=== PATIENT | female | born 1960 | race Caucasian/White ===

== ENCOUNTER 2018-07-11 12:40 | Outpatient (CLI) | payer OTHER ==
--- NOTE | 2018-07-11 18:00 | CT ---
CT ABDOMEN WITH CONTRAST: CT PELVIS WITH CONTRAST: HISTORY: Abdominal mass in the left upper quadrant. The patient vomited twice last week. Constipation for th e past year. Left-sided abdominal pain. COMPARISON: None. FINDINGS: ABDOMEN: The lung bases are clear. The heart size is normal. No pericardial effusion. The descend ing thoracic aorta and abdominal aorta have a normal caliber. No periaortic fat stranding. Symmetri c attenuation of the psoas muscles. The portal vein is patent. Unremarkable gallbladder. The liver, spleen, pancreas, and adrenal glands have appropriate enhancement. No gastrohepatic, retrocrural, or periportal lymphadenopathy. Symmetric enhancement of the kidneys. Right extrarenal pelvis is noted. Hypodensities in the lower pole of the left kidney, compatible with mild dilatation. There is also mild dilatation of the right renal calyces. Bilaterally, no obstructing calculi in the intrarenal or extrarenal collecting syste ms. Bilateral ureters are unremarkable. No mesenteric mass, lymphadenopathy, free air, or free fluid. The gastric mucosa, the duodenum, and multiple normal caliber small bowel loops are noted. The ileoc ecal junction is normal. Normal caliber appendix. There is contrast and fecal material in a nondist ended, nondilated colon. Occasional diverticulum. No evidence of diverticulitis. Mucosal prominenc e and bowel wall prominence of the distal descending and sigmoid colon, likely due to inadequate dist ention. PELVIS: Unremarkable urinary bladder. The uterus and right adnexa have a normal appearance. In the left adnexa, there is a peripherally enhancing, centrally hypodense lesion, measuring 1.9 x 2.4 cm, compatible with a left ovarian cyst. A second smaller cyst, measuring 1.3 x 1, cm may be present. N o pelvic mass, lymphadenopathy, free air, or free fluid. The left ovarian vein is prominent, and the re is increased vascularity in the left adnexa. No lytic or blastic lesions in the osseous structures. IMPRESSION: 1. Mild fullness of both internal renal collecting systems, suggesting a component of mild bilateral hydronephrosis. There are no obstructing renal calculi. A urology consultation may be beneficial. 2. Multiple hypodensities in the left adnexa, likely representing ovarian follicles. There is asymm etric prominence of the left adnexal vascularity due to a prominent left ovarian vein. Correlate cli nically. 3. No evidence of small bowel or colon obstruction. POS: [facility]
== END 2018-07-11 12:41 | disposition home or self-care (01) ==
LOC: SCSCT 12:40
PROVIDERS: ATTEND Family Medicine
DX: R19.02 Left upper quadrant abdominal swelling, mass and lump (principal); R93.89 Abnormal findings on diagnostic imaging of other specified body structures
CPT/HCPCS: 74177

== ENCOUNTER 2018-09-20 10:11 | Outpatient (CLI) | payer OTHER ==
--- NOTE | 2018-09-21 11:13 | MMO ---
Bilateral MAMMO Bilat Screen [facility]. CLINICAL HISTORY: Patient is 58 years old and is seen for screening. The patient has no family history of breast cancer. The patient has no personal history of cancer. VIEWS: The views performed were: bilateral craniocaudal with tomosynthesis and bilateral mediolateral oblique with tomosynthesis. FILMS COMPARED: The present examination has been compared to prior imaging studies performed at [facility] on 09/10/2015, 10/08/2015 and 08/13/2016, and at [facility] on 01/19/2013. MAMMOGRAM FINDINGS: There are scattered fibroglandular densities. There are no suspicious masses, suspicious calcifications, or new areas of architectural distortion. IMPRESSION: THERE IS NO MAMMOGRAPHIC EVIDENCE OF MALIGNANCY. A ROUTINE FOLLOW-UP MAMMOGRAM IN 1 YEAR IS RECOMMENDED. THE RESULTS OF THIS EXAM WERE SENT TO THE PATIENT. ACR BI-RADS Category 1 - Negative MAMMOGRAPHY NOTE: 1. A negative mammogram report should not delay a biopsy if a dominant of clinically suspicious mass is present. 2. Approximately 10% to 15% of breast cancers are not detected by mammography. 3. Adenosis and dense breasts may obscure an underlying neoplasm.
== END 2018-09-20 10:12 | disposition home or self-care (01) ==
LOC: BICMAMMO 10:11
PROVIDERS: ATTEND Family Medicine
DX: Z12.31 Encounter for screening mammogram for malignant neoplasm of breast (principal)
CPT/HCPCS: 77063; 77067

== ENCOUNTER 2018-09-22 08:10 | Outpatient (CLI) | payer OTHER ==
--- NOTE | 2018-09-22 10:27 | ULT ---
ULTRASOUND GALLBLADDER RIGHT UPPER QUADRANT: Date: 09/22/18 HISTORY: Nausea and vomiting. COMPARISON: CT abdomen dated 07/11/18. FINDINGS: Visualized portion of the pancreas is unremarkable. Hepatic echotexture is normal. Small volume sludg e within the gallbladder. Portal vein is patent with antegrade flow. No pericholecystic fluid. The gallbladder wall thickness is normal. The right kidney is normal. No mass, hydronephrosis, or abn ormal calcifications. Common bile duct measures 3.0 mm. IMPRESSION: Normal exam. POS: [facility]
== END 2018-09-22 08:11 | disposition home or self-care (01) ==
LOC: ULT 08:10
PROVIDERS: ATTEND Internal Medicine Gastroenterology
DX: K92.0 Hematemesis (principal); R11.2 Nausea with vomiting, unspecified; R10.9 Unspecified abdominal pain
CPT/HCPCS: 76705

== ENCOUNTER 2019-06-22 09:53 | Outpatient (CLI) | payer OTHER ==
--- NOTE | 2019-06-22 10:34 | ULT ---
ULTRASOUND RETROPERITONEUM COMPLETE: (RENAL) DATE: 06/22/2019 HISTORY: 59-year-old female with "other hydronephrosis" FINDINGS: The right kidney measures 10.5 x 4.5 x 4.5 cm. The left kidney measures 10.5 x 5 x 5 cm. Both kidneys have normal parenchymal echogenicity. There is no hydronephrosis. No moderate sized or large renal cystic or solid renal lesion is identified. Cursory images of the urinary bladder demonstrate no gross abnormality. Prevoid bladder volume 350 mL. Post void residual: 15 mL. IMPRESSION: Normal
== END 2019-06-22 09:54 | disposition home or self-care (01) ==
LOC: BICULT 09:53
PROVIDERS: ATTEND Urology
DX: N13.39 Other hydronephrosis (principal)
CPT/HCPCS: 76770

== ENCOUNTER 2020-09-20 22:02 | Emergency (ER) | payer OTHER | END 2020-09-20 22:35 | disposition home or self-care (01) | LOC: ERS 22:02 | DX: L81.9 Disorder of pigmentation, unspecified (principal); Z87.891 Personal history of nicotine dependence | CPT/HCPCS: 99283 ==

== ENCOUNTER 2020-10-10 14:02 | Observation (INO) | payer OTHER ==
[~2020-10-10 14:02] MED LIST: Iopamidol 370 76% 100 ML VIAL ONE
[2020-10-10 14:38] LABS: #Basophils 0.1 thou/uL (0.0-0.2); #Eosinphils 0.1 thou/uL (0.0-0.7); #Lymphocytes 1.5 thou/uL (1.20-3.40); #Monocytes 0.7 thou/uL (0.11-0.59); #Neutrophils 4.7 thou/uL (1.40-6.50); %Basophils 0.9 % (0.0-1.0); %Eosinophils 1.3 % (0.0-10.0); %Monocytes 10.1 % (0.0-10.0); %Neutrophils 66.6 % (42.0-75.0); Hemoglobin 13.6 g/dL (12.0-16.0); Mean Corpuscular HGB CONC 33.5 g/dL (32.0-36.0); Mean Corpuscular Hemoglobin 33.8 pg (27.0-31.0); Platelet Count 375 thou/uL (130-400); RBC Distribution Width 11.6 % (11.5-14.5); Red Blood Cell (RBC) Count 4.02 mill/uL (4.20-5.40); White Blood Cell (WBC) Count 7.1 thou/uL (4.8-10.8)
[2020-10-10 15:01] LABS: ALT (SGPT) 48 U/L (8-55); AST (SGOT) 23 U/L (5-34); Albumin 4.2 g/dL (3.5-5.0); Alkaline Phosphatase 116 U/L (40-110); Anion Gap 11 mmol/L (10-20); BUN (Urea Nitrogen) 11 mg/dL (9.8-20.1); Bilirubin, Total 0.2 mg/dL (0.2-1.2); Calc. Creatinine Clearance 0 mL/min (70-130); Calcium 9.3 mg/dL (7.8-10.44); Carbon Dioxide 29 mmol/L (22-29); Chloride 107 mmol/L (98-107); Glucose 125 mg/dL (70-105); Protein, Total 7.2 g/dL (6.0-8.3); Sodium 143 mmol/L (136-145)
[2020-10-10] MEDS ORDERED: Acetaminophen 650 MG Suppository PR PRN (17:15)
[2020-10-10 17:18] LABS: Bacteria/HPF None Seen HPF (None Seen); Bilirubin Negative (Negative); Blood, Urine Negative (Negative); Clarity Clear (Clear); Glucose, Urine (Dipstick) Normal (Negative); Ketone, Urine Negative (Negative); Leukocyte 25 Leu/uL (Negative); Nitrite Negative (Negative); Protein, Urine (Dipstick) Negative (Neg-Trace); RBC/HPF 0-3 HPF (0-3); Specific Gravity, Urine 1.005 (1.002-1.036); Squamous Epithelial 0-3 HPF (0-3); Urobilinogen Normal mg/dL (Less than 2); pH, Urine 7.5 (5.0-9.0)
[2020-10-10] MEDS ORDERED: Aspirin 325 MG TAB PO SCH (17:30)
[2020-10-10 19:27] VITALS: BMI 29.0
[2020-10-10] MEDS ORDERED: Ondansetron ODT 4 MG TAB SL PRN (20:00)
[2020-10-10] MEDS ORDERED: Ondansetron PF 4 MG/2 ML Vial IVP PRN (20:00)
[2020-10-10] MEDS: Sodium Chloride 0.9% 1,000 ML IV SCH (21:28)
[2020-10-10 21:55] LABS: CKMB 0.8 ng/mL (0-6.6)
[2020-10-11 00:37] VITALS: TEMP 97.5
[2020-10-11 05:09] LABS: #Eosinphils 0.1 thou/uL (0.0-0.7); #Lymphocytes 1.5 thou/uL (1.20-3.40); #Monocytes 0.6 thou/uL (0.11-0.59); #Neutrophils 2.8 thou/uL (1.40-6.50); %Basophils 0.5 % (0.0-1.0); %Eosinophils 2.2 % (0.0-10.0); %Lymphocytes 30.4 % (21.0-51.0); %Neutrophils 55.9 % (42.0-75.0); Hemoglobin 11.8 g/dL (12.0-16.0); Mean Corpuscular HGB CONC 33.7 g/dL (32.0-36.0); Mean Platelet Volume 7.1 fL (7.4-10.4); Platelet Count 303 thou/uL (130-400); RBC Distribution Width 11.7 % (11.5-14.5); Red Blood Cell (RBC) Count 3.47 mill/uL (4.20-5.40)
[2020-10-11 05:42] LABS: Anion Gap 11 mmol/L (10-20); BUN (Urea Nitrogen) 11 mg/dL (9.8-20.1); Calc. Creatinine Clearance 115 mL/min (70-130); Calcium 8.6 mg/dL (7.8-10.44); Carbon Dioxide 23 mmol/L (22-29); Chloride 109 mmol/L (98-107); Glucose 104 mg/dL (70-105); Potassium 3.7 mmol/L (3.5-5.1); Sodium 139 mmol/L (136-145)
[2020-10-11] MEDS: Sodium Chloride 0.9% 1,000 ML IV SCH (07:53)
[2020-10-11 08:51] LABS: Troponin I 0.033 ng/mL (< 0.028)
[2020-10-11] MEDS: Acetaminophen 325 MG TAB PO PRN ×2 (10:02→14:59)
[2020-10-11 11:38] LABS: SARS-CoV-2 PCR NAA for Saliva Not Detected (NotDetected)
[2020-10-11] MEDS ORDERED: ADENOSINE 60 MG/20 ML VIAL ONE (11:52)
[2020-10-11] MEDS ORDERED: Ondansetron PF 4 MG/2 ML Vial IVP PRN (14:53)
[2020-10-11 15:45] VITALS: BP 135/81
[2020-10-11] MEDS ORDERED: Metoprolol Tartrate 25 MG TAB PO SCH (21:00)
[2020-10-11] MEDS ORDERED: Atorvastatin Calcium 40 MG TAB PO SCH (21:00)
[2020-10-12] MEDS ORDERED: Aspirin 81 mg Enteric Coated Tablet PO SCH (09:00)
== END 2020-10-11 18:09 | disposition home or self-care (01) ==
LOC: ERS 14:02 → 2SW 17:12
PROVIDERS: ADMIT Internal Medicine; ATTEND Internal Medicine
DX: R00.0 Tachycardia, unspecified (principal); R42 Dizziness and giddiness; R07.9 Chest pain, unspecified; R06.02 Shortness of breath; G43.909 Migraine, unspecified, not intractable, without status migrainosus; Z20.822 Contact with and (suspected) exposure to COVID-19
CPT/HCPCS: 36415; 71045; 71275; 78452; 80048; 80053; 81003; 81015; 82553; 83690; 84443; 84484; 85025; 85379; 87635; 93005; 93017; 96374; A9500; G0378; J0153; J2405; Q9967; U0003; U0005

== ENCOUNTER 2020-10-21 10:02 | Outpatient (CLI) | payer OTHER | END 2020-10-21 10:03 | disposition home or self-care (01) | LOC: EEVIPCON 10:02 → BICULT 10:02 | PROVIDERS: ATTEND Physician Assistant Medical | DX: R10.11 Right upper quadrant pain (principal); R94.5 Abnormal results of liver function studies | CPT/HCPCS: 76705 ==

== ENCOUNTER 2022-08-25 02:31 | Emergency (ER) | payer OTHER ==
[2022-08-25] MEDS ORDERED: Ondansetron ODT 4 MG TAB ONE (02:49)
[2022-08-25 02:57] LABS: #Basophils 0.1 thou/uL (0.0-0.2); #Monocytes 0.5 thou/uL (0.11-0.59); #Neutrophils 8.9 thou/uL (1.40-6.50); %Basophils 0.7 % (0.0-1.0); %Eosinophils 0.2 % (0.0-10.0); %Lymphocytes 9.6 % (21.0-51.0); %Monocytes 4.7 % (0.0-10.0); %Neutrophils 84.7 % (42.0-75.0); Hemoglobin 15.3 g/dL (12.0-16.0); Mean Corpuscular HGB CONC 34.5 g/dL (32.0-36.0); Mean Corpuscular Hemoglobin 34.9 pg (27.0-31.0); Mean Platelet Volume 7.6 fL (7.4-10.4); Platelet Count 256 10x3/uL (130-400); RBC Distribution Width 11.5 % (11.5-14.5); Red Blood Cell (RBC) Count 4.39 mill/uL (4.20-5.40); White Blood Cell (WBC) Count 10.5 10x3/uL (4.8-10.8)
[2022-08-25 03:18] LABS: ALT (SGPT) 15 U/L (8-55); AST (SGOT) 23 U/L (5-34); Albumin 4.7 g/dL (3.5-5.0); Alkaline Phosphatase 61 U/L (40-110); Anion Gap 16 mmol/L (10-20); BUN (Urea Nitrogen) 14 mg/dL (9.8-20.1); Bilirubin, Total 0.7 mg/dL (0.2-1.2); Calc. Creatinine Clearance 0 mL/min (70-130); Calcium 10.4 mg/dL (7.8-10.44); Carbon Dioxide 23 mmol/L (22-29); Chloride 101 mmol/L (98-107); Estimated GFR 54; Globulin 2.9 g/dL (2.4-3.5); Glucose 168 mg/dL (70-105); Lipase 13 U/L (8-78); Potassium 3.8 mmol/L (3.5-5.1); Protein, Total 7.6 g/dL (6.0-8.3); Sodium 136 mmol/L (136-145)
[2022-08-25] MEDS ORDERED: Pantoprazole 40 MG VIAL ONE (04:08)
[2022-08-25 05:26] LABS: Bacteria/HPF None Seen HPF (None Seen); Bilirubin Negative (Negative); Blood, Urine Negative (Negative); Clarity Clear (Clear); Glucose, Urine (Dipstick) Normal (Negative); Ketone, Urine 60 mg/dL (Negative); Leukocyte 500 Leu/uL (Negative); Nitrite Negative (Negative); Protein, Urine (Dipstick) 30 mg/dL (Neg-Trace); Specific Gravity, Urine 1.024 (1.002-1.036); Squamous Epithelial 0-3 HPF (0-3); Urobilinogen Normal mg/dL (Less than 2); WBC/HPF Greater than 50 HPF (0-3)
[2022-08-25] MEDS ORDERED: cefTRIAXone\\ROCEPHIN 2 GM VIAL ONE (06:16)
[2022-08-25] MEDS ORDERED: Iopamidol-370 76% 500 ML 1 ML ONE (09:12)
== END 2022-08-25 08:13 | disposition home or self-care (01) ==
LOC: ERS 02:31
DX: N39.0 Urinary tract infection, site not specified (principal); K21.9 Gastro-esophageal reflux disease without esophagitis; Z79.899 Other long term (current) drug therapy
CPT/HCPCS: 36415; 74177; 80053; 81003; 81015; 83690; 84484; 85025; 87086; 93005; 96374; 96375; C9113; J0696; Q0162; Q9967